=== PATIENT | female | born 1960 | race Asian ===

== ENCOUNTER 2022-08-07 14:48 | Outpatient (CLI) | payer BC | END 2022-08-07 14:49 | disposition home or self-care (01) | LOC: CSHMAMMO 14:48 | PROVIDERS: ATTEND Internal Medicine Endocrinology, Diabetes & Metabolism | DX: M81.8 Other osteoporosis without current pathological fracture (principal); M85.89 Other specified disorders of bone density and structure, multiple sites | CPT/HCPCS: 77080 ==

== ENCOUNTER 2023-09-23 13:32 | Outpatient (CLI) | payer BC | END 2023-09-23 13:33 | disposition home or self-care (01) | LOC: CSHMAMMO 13:32 | PROVIDERS: ATTEND Internal Medicine Endocrinology, Diabetes & Metabolism | DX: M81.8 Other osteoporosis without current pathological fracture (principal); M85.851 Other specified disorders of bone density and structure, right thigh; M85.852 Other specified disorders of bone density and structure, left thigh | CPT/HCPCS: 77080 ==